=== PATIENT | male | born 1970 | race Caucasian/White ===

== ENCOUNTER → 2020-07-29 15:27 | Outpatient (CLI) | payer BC, SELFPAY ==
[2020-07-29] MEDS: COVID-19 VACC #1, MRNA(MOD) 100 MCG/0.5 ML VIAL IM (15:32)
== END ==
PROVIDERS: PCP Family Medicine; Visit Provider Internal Medicine
DX: Z23 Encounter for immunization (principal)
CPT/HCPCS: 0011A; 91301

== ENCOUNTER → 2020-08-27 10:55 | Outpatient (CLI) | payer BC, SELFPAY ==
[2020-08-27] MEDS: COVID-19 VACC #2, MRNA(MOD) 100 MCG/0.5 ML VIAL IM (11:03)
== END ==
PROVIDERS: PCP Family Medicine; Visit Provider Internal Medicine
DX: Z23 Encounter for immunization (principal)
CPT/HCPCS: 0012A; 91301

== ENCOUNTER → 2021-02-15 13:01 | Outpatient (CLI) | payer BC, SELFPAY ==
--- NOTE | 2021-02-15 13:05 | DI.RAD.S_ITS ---
PROCEDURE: XR KNEE LT 3V INDICATIONS: LT KNEE PAIN TECHNIQUE: 3 views of the knee were acquired. COMPARISON: None. FINDINGS: Bones: No fractures or dislocations. Minimal lateral patellar osteophyte. No suspicious bony lesions. Soft tissues: Small suprapatellar joint effusion. No suspicious soft tissue calcifications. IMPRESSION: No acute osseous abnormality. Dictated by: Musa Acevedo M.D. on 02/15/2021 at 14:42 Approved by: Musa Acevedo M.D. on 02/15/2021 at 14:43
--- NOTE | 2021-02-15 13:05 | DI.RAD.S_ITS ---
PROCEDURE: XR LUMBAR SPINE 2-3V INDICATIONS: LOW BACK PAIN TECHNIQUE: 3 views of the lumbar spine were acquired. COMPARISON: [facility], , -SPINE 2-3 VIEWS, 10/27/2009, 11:10. FINDINGS: Bones: 5 [id number] vertebrae are present. There is normal bony alignment. No vertebral body compression fractures. No suspicious bony lesions. Mild disc space narrowing and facet sclerosis noted in the lower lumbar spine, similar prior exam. Soft tissues: Overlying bowel gas pattern is normal. No suspicious soft tissue calcifications. IMPRESSION: Lower lumbar spine degenerative disc disease and arthropathy, similar to the prior Approved by: Piero Mcgrath M.D. on 02/15/2021 at 15:43
== END ==
PROVIDERS: PCP Family Medicine; Referring Provider Family Medicine; Visit Provider Family Medicine
DX: M54.50 Low back pain, unspecified (principal); M25.562 Pain in left knee
CPT/HCPCS: 72100; 73562